=== PATIENT | female | born 1975 | race Caucasian/White ===

== ENCOUNTER → 2016-10-08 | Outpatient (CLI) | payer OTHER ==
[~2016-10-08] MED LIST: CITA20TA5 PO; VITA1TAB3 PO
[2016-10-08 08:42] LABS: HEMOGLOBIN 15.7 g/dL (11.7-16.4)
[2016-10-08 08:56] LABS: PATH.CAST-FLAG NOT PRESENT; SPERM-FLAG NOT PRESENT; SRC-FLAG NOT PRESENT; XTAL-FLAG NOT PRESENT; YLC-FLAG NOT PRESENT
== END | disposition home or self-care (01) ==
LOC: STAR 07:30
PROVIDERS: ATTEND Obstetrics & Gynecology Maternal & Fetal Medicine
DX: Z01.818 Encounter for other preprocedural examination (principal)
CPT/HCPCS: 36415; 81001; 84703; 85025

== ENCOUNTER 2016-10-15 11:33 | Day surgery (SDC) | payer OTHER ==
[~2016-10-15] VITALS: Ht 167.6 cm; Wt 65.4 kg
[2016-10-15] MEDS ORDERED: MIDAZOLAM 1 MG/ML, 2ML ONE (11:58)
[2016-10-15] MEDS ORDERED: FENTANYL PF 100 MCG/2ML ONE (11:59)
[2016-10-15] MEDS ORDERED: LACTATED RINGERS 1,000 ML IV SCH (12:18)
[2016-10-15] MEDS ORDERED: NEOSPORIN OINT, 15GM ONE (12:39)
[2016-10-15] MEDS ORDERED: BUPIVACAINE/PF-EPI 0.25% 1:200K ONE (12:39)
[2016-10-15] MEDS ORDERED: SILVER NITRATE STICK TP ONE (12:39)
[2016-10-15 12:40] VITALS: BP 109/72
[2016-10-15 12:42] LABS: HCG UR OBC PASS
[2016-10-15] MEDS ORDERED: ACETAMINOPHEN 325 MG TABLET PO PRN (13:00)
[2016-10-15] MEDS ORDERED: METOCLOPRAMIDE 5 MG/ML, 2ML IV PRN (13:00)
[2016-10-15] MEDS ORDERED: PROMETHAZINE 25 MG/ML, 1ML IV PRN (13:00)
[2016-10-15] MEDS ORDERED: HYDROmorphone 1 MG/ML, 1ML IV PRN (13:00)
[2016-10-15] MEDS ORDERED: FENTANYL PF 100 MCG/2ML IV PRN (13:00)
[2016-10-15] MEDS ORDERED: OXYcodone 5 MG/5 ML ORAL.SOL UDC PO PRN (13:00)
[2016-10-15] MEDS ORDERED: MEPERIDINE/PF 25MG/0.5ML IVPush PRN (13:00)
[2016-10-15] MEDS ORDERED: ONDANSETRON 2MG/ML, 2ML IVPush PRN (13:00)
[2016-10-15] MEDS ORDERED: OXYcodone 5 MG/5 ML ORAL.SOL UDC ONE (14:40)
[2016-10-15] MEDS ORDERED: MEPERIDINE/PF 25MG/0.5ML ONE (14:40)
[2016-10-15] MEDS ORDERED: DEXAMETHASONE 4 MG/ML, 1ML ONE (16:03)
[2016-10-15] MEDS ORDERED: KETOROLAC 30 MG/1 ML ONE (16:03)
[2016-10-15] MEDS ORDERED: NEOSTIGMINE 1 MG/ML, 10ML ONE (16:03)
[2016-10-15] MEDS ORDERED: PROPOFOL 10 MG/ML, 20ML ONE (16:03)
[2016-10-15] MEDS ORDERED: ROCURONIUM 10 MG/ML ONE (16:03)
[2016-10-15] MEDS ORDERED: ONDANSETRON 2MG/ML, 2ML ONE (16:03)
[2016-10-15] MEDS ORDERED: GLYCOPYRROLATE 0.2MG/1ML ONE (16:03)
== END 2016-10-15 16:15 | disposition home or self-care (01) ==
LOC: OUT 11:33
PROVIDERS: ATTEND Obstetrics & Gynecology Maternal & Fetal Medicine
DX: Z30.2 Encounter for sterilization (principal); D28.2 Benign neoplasm of uterine tubes and ligaments; N83.8 Other noninflammatory disorders of ovary, fallopian tube and broad ligament; F32.9 Major depressive disorder, single episode, unspecified; K08.409 Partial loss of teeth, unspecified cause, unspecified class
CPT/HCPCS: 58661; 81025; 88302; J1100; J1885; J2175; J2250; J2405; J2704; J2710; J3010; J7120; J3490